=== PATIENT | female | born 1990 ===

== ENCOUNTER 2017-02-22 09:20 | Inpatient (IN) | payer MEDICAID ==
[~2017-02-22] VITALS: Ht 154.9 cm; Wt 47.7 kg
[~2017-02-22 09:20] MED LIST: IRON325 M1 PO; MOTRIN-DPS800 MG PO; NIPPLECREAM TP; PRENATAL VIT1 TAB PO; TYLENOL #3 DPS1 TAB PO
--- NOTE | 2017-02-22 16:19 | ER ---
ADMIT: 02/22/2017 RM/LOC: ER [facility] MR#: [id number] [address] [id number] MADHU DOMINGO [address] [place] [address] Emergency Room Report SEX: F AGE: 26 : 1990 DATE: 02/22/2017 TIME: 0920 hours. Please refer to my T-sheet for complete H and P. Briefly, the patient is a 26- year-old who was in the ER last night for abdominal pain, nausea, and vomiting. She had a large workup. She does have a history of Crohn's status post a partial colectomy. They did a CT scan that suggested ileitis, but was given fluids, was feeling better. She says she went home, she has been vomiting multiple times, around 10. She said, just not keep anything down. She feels weak. No energy. PHYSICAL EXAM: VITAL SIGNS: Stable ABDOMEN: Diffusely tender. SKIN: No rash. Mucous membranes are dry. EMERGENCY DEPARTMENT COURSE: I established an IV. We gave her a liter of normal saline bolus, Zofran 4 IV. I reviewed her labs. CBC was normal except white count 11.3. Chemistries essentially normal. Her CRP was 0.71. Sedimentation rate was 18. was negative. Her urine showed 16 white cells, 2+ red cells. The CT scan revealed an ileitis. I talked to Dr. Olea, the patient has not been on any long-term Crohn's medications. She has had severe Crohn's in the past with partial colectomy and has not followed up with a supervisor twisting department. Has only seen the [facility] twice and had no abdominal complaints on the last visit. Due to the complexity of her history and worsening of her symptoms, we are going to admit her to the hospital for IV hydration and further evaluation. ASSESSMENT: 1. Nausea, vomiting, and diarrhea. 2. Crohn's exacerbation. PLAN: She was given Decadron 10 IV, a liter of fluid. I will admit to the hospital. Vipul Molina MD/ danni JOB #: [id number] CC: Vipul Molina MD, Attending Physician Lashonda Delgado PA-C
--- NOTE | 2017-02-25 07:52 | HP ---
ADMIT: 02/22/2017 RM/LOC: 633 [facility] MR#: [id number] [address] [id number] BLAKE DOMINGO [address] [place] [address] History and Physical SEX: F AGE: 26 : 1990 DATE OF SERVICE: CHIEF COMPLAINT: Diarrhea and flare-up Crohn's. HISTORY OF PRESENT ILLNESS: Blake is a 26-year-old, female, who has been seen a couple times in our office by Lashonda Delgado, physician pastoral assistant. Blake states, she was diagnosed many years ago with Crohn disease in [place], [place].. She has had multiple hospitalizations here for Crohn's. She ran out of her medications 5 months ago. Did not have prescription coverage here, so she has not been on any medications in the last 5 months. She states that she was diagnosed about 2 years ago with Crohn's and ever since then, she has been having multiple loose stools a day. She states this past week, she has had too numerous to count stools. There has been no blood in stools, but she has some nausea but no fever. She has diffuse abdominal pain. She came in the ER twice in the last 24 hours second time doctor called me, and she is admitted at this time for flare-up of her Crohn's. CT scan in the emergency room did show acute ileitis but no signs of any perforation. ALLERGIES: NONE. MEDICATIONS: None. PAST MEDICAL HISTORY: Multiple hospitalizations for Crohn's, hospitalized x2 for childbirth, youngest is about a year old. Otherwise, past medical history is negative other than the Crohn's diagnosed 2 years ago. SOCIAL HISTORY: lives with her . Does not work outside the home. Does not use alcohol or tobacco. FAMILY HISTORY: Positive with mother diabetes, hypertension, and heart problems. Otherwise, rest of family history is negative. REVIEW OF SYSTEMS: She states she has lost about 25 pounds this past year. She is down to 105 pounds. She normally weighs 130. She has been as low as 97 pounds. Otherwise, rest review of systems is negative. PHYSICAL EXAMINATION: GENERAL: A 26-year-old female, she is alert, cooperative, oriented x3. VITAL SIGNS: Temp is 98.8, pulse 88, respiratory rate 16, BP 103/63, O2 saturation 98% on room air. She has been given a liter of fluids IV down in the emergency room with some IV steroids. HEENT: Eyes; PERRLA. EOMs intact. Throat is somewhat dry but not inflamed. NECK: Supple. No lymphadenopathy. No meningeal signs. LUNGS: Clear to auscultation anteriorly. HEART: Regular rate, no murmur. BREASTS: Not examined. ABDOMEN: Flat, bowel sounds present. Diffuse abdominal tenderness and some ADMIT: 02/22/2017 RM/LOC: 633 [facility] MR#: [id number] [address] [place] [id number] JOSE L, AIDELIN [address] [place] [address] History and Physical SEX: F AGE: 26 : 1990 guarding but no rebound. No organomegaly detected. : Rectal deferred. EXTREMITIES: No clubbing, cyanosis, or edema. DIAGNOSTIC IMPRESSION: 1. Crohn's disease with acute exacerbation acute flare. 2. Moderate dehydration. 3. Malnutrition with weight loss. PLAN: Add IV fluids, monitor electrolytes, IV steroids. We will start her on some IV Cipro. Initially, give her sips of water. GI function is okay. We will start her on oral medications appropriate for Crohn's. Dallas Olea MD/ danni JOB #: [id number] CC: Dallas Olea MD, Attending Physician Dallas Olea MD, Family Physician
[2017-02-28] MEDS ORDERED: CIPRO DPS500 MG PO (11:44)
[2017-02-28] MEDS ORDERED: DELTASONE DPS10 MG PO (11:44)
[2017-02-28] MEDS ORDERED: ULTRAM DPS50 MG PO (11:44)
[2017-02-28] MEDS ORDERED: TYLENOL DPS325 MG PO (11:45)
--- NOTE | 2017-03-07 07:40 | DS ---
ADMIT: 02/22/2017 RM/LOC: 633 [facility] MR#: [id number] [address] [address] JOSE LSERENA TIERNEYARIEL [address] [place] [address] General Discharge Summary SEX: F AGE: 26 : 1990 ADMISSION DATE: 02/22/2017 DISCHARGE DATE: 02/27/2017 ADMITTING DIAGNOSIS: Nausea, vomiting. DISMISSAL DIAGNOSES: 1. Partial small bowel obstruction. 2. Crohn's disease with acute exacerbation. 3. Chronic protein-calorie malnutrition. 4. Mild dehydration. 5. Anemia. CHIEF COMPLAINT AND HISTORY OF PRESENT ILLNESS: A 26-year-old, female, been diagnosed several years ago with Crohn's disease in [place], [place]. States she had multiple hospitalizations there in [place] for Crohn's. She ran out of medications about 5 months ago, did not have prescription coverage here with her insurance company, so she has not been on medication for the last 5 months. Since she has been having multiple loose stools per day, too numerous to count. There has been no blood in the stool. She has had some nausea, but no fever. Over the last 24 hours, she has had increased abdominal pain, nausea, vomiting, came into the emergency room. CT scan showed regional acute ileitis, but no signs of perforation. There were signs of small bowel obstruction. She was admitted for IV fluids and bowel rest and pain control. LABORATORY DATA: White count on admission was 7.7, on dismissal was 8.7; hemoglobin on admission was 10.7, on dismissal hemoglobin was 10.2; platelets were 432,000. Electrolytes on admission; sodium 142, potassium 3.6, chloride 111, CO2 of 22, BUN 3, creatinine 0.5, glucose 185. IMAGING: CAT scan report showed decompression of small bowel obstruction on February 26, persistent free fluid noted in the pelvis compared to previous CAT scan in the emergency room, which showed partial small bowel obstruction. COURSE IN THE HOSPITAL: She was admitted, kept n.p.o., initially started on IV fluids with fluid resuscitation, IV morphine for pain control, started on IV steroids and IV Cipro along with IV Protonix. Her abdominal pain slowly improved over the next 2 days to the point that she is able to be placed on ADMIT: 02/22/2017 RM/LOC: 633 [facility] MR#: [id number] [address] [phone] MADHU DOMINGO [address] [place] [address] General Discharge Summary SEX: F AGE: 26 : 1990 some clear liquids. She still had some abdominal pain and symptoms of bowel obstruction, had to proceed very slowly. She was then placed on bland diet, she was continued on IV steroids, eventually improved enough, she was switched to oral Cipro, oral prednisone, with a bland diet. DISCHARGE MEDICATIONS: 1. Cipro 500 mg p.o. b.i.d. for a week. 2. Prednisone tapering dose, initially 40 mg daily tapering down over the next 3 to 4 weeks. DISCHARGE INSTRUCTIONS: She will be seen back in the office in 5 to 7 days for followup. Dallas Olea MD/ danni JOB #: [id number] CC: Dallas Olea MD, Attending Physician Dallas Olea MD, Family Physician
== END 2017-02-27 09:15 | disposition home or self-care (01) | DRG 386 ==
LOC: ER 09:20 → 6PED 09:50
PROVIDERS: ADMIT Family Medicine
DX: K50.012 Crohn's disease of small intestine with intestinal obstruction (principal); E44.1 Mild protein-calorie malnutrition; E86.0 Dehydration; D63.8 Anemia in other chronic diseases classified elsewhere